=== PATIENT | female | born 1945 | race Caucasian/White ===

== ENCOUNTER 2017-03-11 12:09 | Emergency (ER) | payer OTHER ==
[~2017-03-11] VITALS: Ht 154.9 cm; Wt 64.0 kg
[~2017-03-11 12:09] MED LIST: ATENOLOL25 MG PO; ATORVASTATIN CA40 MG PO; CALCIUM 500 WI1 EAC2 PO; CARDIZEM CD240 MG PO; COUMADIN7.5 MG PO; DIGOXIN250 MCG PO; FENOFIBRATE48 MG PO; IMDUR30 MG PO; LOSARTAN POTAS100 MG PO; WARFARIN SODIUM5 MG PO
[2017-03-11 13:17] LABS: HEMATOCRIT 50.2 % (36.0-46.0); MCH 27.3 PG (29.0-34.0); MCHC 32.9 G/DL (30.0-36.0); MEAN PLAT.VOLUME 9.2 uM^3 (9.5-12.4); PLATELET COUNT 199 K/uL (156-360); RBC DIS.WIDTH-CV 15.8 % (11.8-14.6); RBC DIS.WIDTH-SD 46.2 % (39-53); RED BLOOD COUNT 6.05 M/uL (3.80-5.20); WHITE BLOOD COUNT 14.7 K/uL (4.1-10.2)
[2017-03-11 13:33] LABS: CHLORIDE 109 mEq/L (99-109); SODIUM 138 mEq/L (136-147)
[2017-03-11 13:35] LABS: GLUCOSE 120 mg/dL (70-99)
[2017-03-11 13:36] LABS: ANION GAP 11 MEQ/L (2-14)
[2017-03-11 13:37] LABS: TOTAL BILIRUBIN 0.8 mg/dL (0.0-1.0)
[2017-03-11 13:39] LABS: ALKALINE PHOSPHATASE 97 IU/L (3-129); GFR ESTIMATE (CALCULATED) > 59 mL/min/
[2017-03-11 13:40] LABS: UREA NITROGEN (BUN) 14 mg/dL (9-23)
[2017-03-11 13:42] LABS: LIPASE 6 U/L (1.0-51.0)
[2017-03-11 14:42] LABS: ADD MIUA? YES; BILIRUBIN NEGATIVE; BLOOD NEGATIVE; COLOR YELLOW ((YELLOW)); GLUCOSE (STRIP) NEGATIVE; KETONES NEGATIVE; LEUKOCYTES NEGATIVE; NITRITE NEGATIVE; PROTEIN (STRIP) 100; SPECIFIC GRAVITY 1.023 (1.000-1.030); UROBILINOGEN 0.2 MG/DL (0.2-1.0)
[2017-03-11 14:44] LABS: BACTERIA NONE SEEN /HPF; EPITHELIAL CELLS RARE /HPF; MUCUS TRACE /LPF; RED BLOOD CELLS 0-5 /HPF (0-5); UCUL ADDED? NO; WHITE BLOOD CELLS 0-5 /HPF (0-5)
[2017-03-11] MEDS ORDERED: TYLENOL WITH C1 EACH PO (16:37)
[2017-03-11 16:54] VITALS: BP 161/91
== END 2017-03-11 17:04 | disposition home or self-care (01) ==
LOC: EME 12:09
DX: R10.32 Left lower quadrant pain (principal); E86.0 Dehydration; Z86.73 Personal history of transient ischemic attack (TIA), and cerebral infarction without residual deficits; I25.2 Old myocardial infarction; I10 Essential (primary) hypertension; E78.5 Hyperlipidemia, unspecified; Z79.01 Long term (current) use of anticoagulants; F17.200 Nicotine dependence, unspecified, uncomplicated
CPT/HCPCS: 74177; 80053; 81003; 83690; 85027; 99281; 99285; J2270; J7030